=== PATIENT | female | born 1975 | race Two or more races ===

== ENCOUNTER 2025-09-29 10:50 | Inpatient (IN) | payer OTHER ==
[~2025-09-29] VITALS: Ht 165.1 cm; Wt 64.9 kg
[2025-09-29] MEDS ORDERED: CLIMARA1 EAC2 (11:30)
[2025-09-29] MEDS ORDERED: ENDOMETRIN100 MG (11:30)
[2025-10-05] MEDS ORDERED: CEFAZOLIN SODIUM 1,000 MG VIAL IV SCH (06:00)
[2025-10-05] MEDS ORDERED: CEFAZOLIN SODIUM 1,000 MG VIAL ONE (08:51)
[2025-10-05] MEDS ORDERED: ACETAMINOPHEN 325 MG TABLET PO SCH (14:51)
[2025-10-05] MEDS ORDERED: ONDANSETRON HCL 2 MG/ML VIAL IV SCH (14:51)
[2025-10-05] MEDS ORDERED: RINGERS SOLUTION,LACTATED 1,000 ML IV SCH (14:52)
[2025-10-05] MEDS ORDERED: KETOROLAC TROMETHAMINE 30 MG VIAL IV SCH (14:55)
[2025-10-05] MEDS ORDERED: VISTASEAL DUAL APPICATOR 1 EACH APPL TOP ONE (15:15)
[2025-10-05] MEDS ORDERED: THROMBIN,HU/FIBRINOGEN/CALCIUM 10 ML SYRINGE TOP ONE (15:15)
[2025-10-05] MEDS ORDERED: CEFAZOLIN SODIUM 1,000 MG VIAL IV ONE (15:15)
[2025-10-05] MEDS ORDERED: KETOROLAC TROMETHAMINE 30 MG VIAL ONE (16:23)
[2025-10-05] MEDS ORDERED: GABAPENTIN 100 MG CAPSULE PO ONE (16:23)
[2025-10-05] MEDS ORDERED: ACETAMINOPHEN 325 MG TABLET PO ONE (16:24)
[2025-10-05 16:40] LABS: BASO % 0.1 % (0.1-1.2); EOS # 0.01 (0.04-0.54); EOS % 0.1 % (0.7-7.0); LYMPH # 1.78 (1.18-3.74); LYMPH % 10.1 % (19.3-53.1); MEAN PLATELET VOLUME 9.90 fl (9.4-12.4); MONO # 0.43 (0.24-0.82); MONO % 2.4 % (4.7-12.5); NEUT # 15.22 (1.56-6.13); NEUT % 86.7 % (34.0-71.1); RED CELL DISTRIBUTION WIDTH 13.0 % (11.6-14.4)
[2025-10-05] MEDS ORDERED: GABAPENTIN 100 MG CAPSULE PO SCH (17:00)
[2025-10-05 17:19] LABS: BUN CREA RATIO 20.0 (7.0-25.0); CREATININE SERUM 0.66 mg/dL (0.55-1.02); GFR 94.8; GLUCOSE FASTING 128.0 mg/dL (65-100); OSMOLALITY SERUM 285.0 MOSM/KG (275-295)
[2025-10-05 17:39] VITALS: BP 121/75
[2025-10-05 22:03] LABS: BASO % 0.1 % (0.1-1.2); EOS # 0.00 (0.04-0.54); EOS % 0.0 % (0.7-7.0); LYMPH # 0.86 (1.18-3.74); LYMPH % 4.4 % (19.3-53.1); MEAN PLATELET VOLUME 10.00 fl (9.4-12.4); MONO # 0.85 (0.24-0.82); MONO % 4.3 % (4.7-12.5); NEUT # 17.89 (1.56-6.13); NEUT % 90.8 % (34.0-71.1); RED CELL DISTRIBUTION WIDTH 12.8 % (11.6-14.4)
[2025-10-06] VITALS: BP 108/65
[2025-10-06 08:00] VITALS: BP 97/59
[2025-10-06 08:10] LABS: BASO % 0.1 % (0.1-1.2); EOS # 0.00 (0.04-0.54); EOS % 0.0 % (0.7-7.0); LYMPH # 2.11 (1.18-3.74); LYMPH % 13.7 % (19.3-53.1); MEAN PLATELET VOLUME 10.70 fl (9.4-12.4); MONO # 0.85 (0.24-0.82); MONO % 5.5 % (4.7-12.5); NEUT # 12.35 (1.56-6.13); NEUT % 80.2 % (34.0-71.1); RED CELL DISTRIBUTION WIDTH 13.2 % (11.6-14.4)
[2025-10-06 08:31] LABS: BUN CREA RATIO 11.0 (7.0-25.0); CREATININE SERUM 0.7 mg/dL (0.55-1.02); GFR 88.57; GLUCOSE FASTING 89.0 mg/dL (65-100); OSMOLALITY SERUM 281.0 MOSM/KG (275-295)
== END 2025-10-06 10:39 | disposition home or self-care (01) | DRG 743 ==
LOC: O/R 10-05 08:00 → OB/GYN 10-05 08:00 → SURH 10-05 10:45 → OB/GYN 10-05 15:52
PROVIDERS: Student in an Organized Health Care Education/Training Program; Urology; ADMIT Obstetrics & Gynecology Gynecology; ATTEND Obstetrics & Gynecology Gynecology
PROC: 0T788DZ Dilation of Bilateral Ureters with Intraluminal Device, Via Natural or Artificial Opening Endoscopic (ICD-10-PCS; 2025-10-05)
PROC: 0UT94ZZ Resection of Uterus, Percutaneous Endoscopic Approach (ICD-10-PCS; principal; 2025-10-05 10:45)
PROC: 0UT74ZZ Resection of Bilateral Fallopian Tubes, Percutaneous Endoscopic Approach (ICD-10-PCS; 2025-10-05 10:45)
DX: D25.1 Intramural leiomyoma of uterus (principal); N80.03 Adenomyosis of the uterus; N72 Inflammatory disease of cervix uteri

== ENCOUNTER 2025-10-07 18:43 | Emergency (ER) | payer OTHER ==
[~2025-10-07] VITALS: Ht 165.1 cm; Wt 64.9 kg
[~2025-10-07 18:43] MED LIST: CLIMARA1 EAC2; ENDOMETRIN100 MG
[2025-10-07] MEDS ORDERED: FAMOTIDINE/PF 20 MG in 0.9 % SODIUM CHLORIDE 8 ML IV PUSH ONE (19:30)
[2025-10-07] MEDS ORDERED: 0.9 % SODIUM CHLORIDE 1,000 ML IV SCH (19:30)
[2025-10-07] MEDS ORDERED: KETOROLAC TROMETHAMINE 30 MG VIAL IU ONE (20:30)
[2025-10-07] MEDS ORDERED: ORPHENADRINE CITRATE 30 MG/ML AMPUL IM ONE (20:30)
[2025-10-07] MEDS ORDERED: TAMSULOSIN HCL 0.4 MG CAP PO ONE ×2 (20:30→22:06)
[2025-10-07] MEDS ORDERED: KETOROLAC TROMETHAMINE 30 MG VIAL ONE (22:06)
[2025-10-07] MEDS ORDERED: ORPHENADRINE CITRATE 30 MG/ML AMPUL ONE (22:06)
[2025-10-07] MEDS ORDERED: FAMOTIDINE/PF 20 MG/2 ML VIAL ONE (22:06)
[2025-10-07 23:30] LABS: URINE APPEARANCE Clear; URINE BILIRRUBIN Negative (NEGATIVE); URINE BLOOD Moderate; URINE COLOR Yellow; URINE GLUCOSE Negative (NEGATIVE); URINE LEUKOCYTE Negative; URINE NITRATE Negative; URINE PROTEIN Trace (NEGATIVE); URINE UROBILINOGEN 0.2 E.U./dl
[2025-10-07 23:38] LABS: BASO % 0.2 % (0.1-1.2); EOS # 0.09 (0.04-0.54); EOS % 0.6 % (0.7-7.0); LYMPH # 2.00 (1.18-3.74); LYMPH % 12.4 % (19.3-53.1); MEAN PLATELET VOLUME 10.50 fl (9.4-12.4); MONO # 1.08 (0.24-0.82); MONO % 6.7 % (4.7-12.5); NEUT # 12.88 (1.56-6.13); NEUT % 79.9 % (34.0-71.1); RED CELL DISTRIBUTION WIDTH 13.2 % (11.6-14.4); URINE BACTERIA 30.8 uL (0.0-1933); URINE EPITHELIAL CELLS 7.8 uL (0.0-38.8); URINE RBC 16.9 uL (0.0-20.8); URINE WBC 8.8 uL (0.0-23.2)
[2025-10-07 23:41] LABS: INR 1.04
[2025-10-07 23:42] LABS: ERYTHROCYTE SEDIMENTATION RATE 40 mm/hr (0-20); URINE CAST 0.14 uL (0.0-1.40); URINE KETONE 40 (NEGATIVE)
[2025-10-07 23:47] LABS: ALT/SGPT 23.0 U/L (12-78); AST/SGOT 40.0 U/L (15-37); BILIRUBIN TOTAL 0.57 mg/dL (0.3-1.2); BUN CREA RATIO 20.0 (7.0-25.0); CREATININE SERUM 1.12 mg/dL (0.55-1.02); GFR 51.49; GLOBULINA 4.3 G/DL (2.4-3.5); GLUCOSE FASTING 100.0 mg/dL (65-100); OSMOLALITY SERUM 285.0 MOSM/KG (275-295)
[2025-10-08] MEDS ORDERED: METRONIDAZOLE/SODIUM CHLORIDE 500 MG/100 ML PIGGYBACK IV ONE ×2 (00:45→03:08)
[2025-10-08] MEDS ORDERED: CIPROFLOXACIN IN 5 % DEXTROSE 200 ML IV ONE (00:45)
[2025-10-08] MEDS ORDERED: CIPROFLOXACIN IN 5 % DEXTROSE 400 MG/200 ML PIGGYBAG IV ONE ×2 (03:08→11:59)
[2025-10-08 09:43] LABS: BASO % 0.2 % (0.1-1.2); EOS # 0.23 (0.04-0.54); EOS % 2.1 % (0.7-7.0); LYMPH # 1.79 (1.18-3.74); LYMPH % 16.7 % (19.3-53.1); MEAN PLATELET VOLUME 9.90 fl (9.4-12.4); MONO # 0.71 (0.24-0.82); MONO % 6.6 % (4.7-12.5); NEUT # 7.92 (1.56-6.13); NEUT % 74.0 % (34.0-71.1); RED CELL DISTRIBUTION WIDTH 13.2 % (11.6-14.4)
[2025-10-08 09:48] LABS: ERYTHROCYTE SEDIMENTATION RATE 30 mm/hr (0-20)
[2025-10-08 10:40] LABS: ALT/SGPT 20.0 U/L (12-78); AST/SGOT 29.0 U/L (15-37); BILIRUBIN TOTAL 0.62 mg/dL (0.3-1.2); BUN CREA RATIO 16.0 (7.0-25.0); CREATININE SERUM 1.2 mg/dL (0.55-1.02); GFR 47.55; GLOBULINA 3.4 G/DL (2.4-3.5); GLUCOSE FASTING 97.0 mg/dL (65-100); OSMOLALITY SERUM 283.0 MOSM/KG (275-295)
[2025-10-08] MEDS ORDERED: CIPROFLOXACIN IN 5 % DEXTROSE 400 MG/200 ML PIGGYBAG IV STA (11:13)
== END 2025-10-08 13:47 | disposition home or self-care (01) ==
LOC: ER 18:44
PROVIDERS: General Practice; Physician Assistant Medical
DX: K66.0 Peritoneal adhesions (postprocedural) (postinfection) (principal); Z98.890 Other specified postprocedural states